=== PATIENT | female | born 1990 | race Caucasian/White ===

== ENCOUNTER → 2018-03-18 13:16 | Outpatient (CLI) | payer OTHER, SELFPAY ==
--- NOTE | 2018-03-18 13:45 | MRI_ITS ---
STUDY: MRA OF THE PELVIS WITH OR WITHOUT CONTRAST REASON FOR EXAM: Female, 28 years old. Recurrent varicose veins. TECHNIQUE: Source images were obtained, MIPs were performed. TECHNICAL QUALITY: Limited by patient motion. COMPARISON: None. Descriptors of Narrowing: None (0%) Mild (< 50%) Moderate (50-70%) Severe (70-90%) Subtotal/Total Occlusion (90-100%) Non-Evaluable (technically non-diagnostic) FINDINGS: The visualized lower aorta and IVC are within normal limits. RIGHT Right common iliac artery: No demonstrated narrowing. Right common iliac vein: No demonstrate narrowing. Right external iliac artery: No demonstrated narrowing. Right external iliac vein: No demonstrated narrowing. Right internal iliac artery: No demonstrated narrowing. Right internal iliac vein: No demonstrated narrowing. LEFT Left common iliac artery: No demonstrated narrowing. Left common iliac vein: No demonstrated narrowing. Left external iliac artery: No demonstrated narrowing. Left external iliac vein: No demonstrated narrowing. Left internal iliac artery: No demonstrated narrowing. Left internal iliac vein: No demonstrated narrowing. There are prominent bilateral ovarian veins. There is no central obstructing soft tissue mass. MRI/MRV Pelvis WITH & Without Cont IMPRESSION: Patent bilateral iliac arterial and venous systems with no demonstrated narrowing. No central obstructing soft tissue mass. Prominent bilateral ovarian veins. Electronically Signed: Mu Balderas, at 16:24 EDT Tel , Service support ,
== END ==
PROVIDERS: Family Provider Family Medicine; PCP Family Medicine; Visit Provider Surgery
DX: I83.12 Varicose veins of left lower extremity with inflammation (principal); I87.2 Venous insufficiency (chronic) (peripheral); M79.605 Pain in left leg
CPT/HCPCS: 72198; A9585; C8920

== ENCOUNTER → 2021-08-12 15:34 | Outpatient (CLI) | payer OTHER, SELFPAY | PROVIDERS: PCP Family Medicine; Referring Provider Nurse Practitioner Family; Visit Provider Nurse Practitioner Family | DX: Z20.822 Contact with and (suspected) exposure to COVID-19 (principal) | CPT/HCPCS: 87635; U0005; U0003 ==

== ENCOUNTER → 2021-11-27 11:07 | Outpatient (CLI) | payer OTHER, SELFPAY | PROVIDERS: PCP Family Medicine; Referring Provider Physician Assistant; Visit Provider Physician Assistant | DX: U07.1 COVID-19 (principal) | CPT/HCPCS: 87635; U0005; U0003 ==